=== PATIENT | female | born 1945 | race Caucasian/White ===

== ENCOUNTER 2016-07-27 10:56 | Inpatient (IN) | payer MEDICARE, OTHER ==
--- NOTE | ~2016-07-27 | DS ---
Unit #: [id number] #: [id number] Patient: EULALIO HOFFMAN [id number] [facility]. [place], [place] [address] [id number] I MR#: [id number] NAME: EULALIO HOFFMAN. ROOM: [facility] Age: 71 Sex: F Admission Date: 07/27/2016 : 1945 Discharge Date: 07/31/2016 Attending Physician: Macho Parks M.D. Primary Care Physician: Robbin Russ Jr., A.P.R.N. DISCHARGE SUMMARY DISCHARGE DIAGNOSES 1. Left femur fracture, status post open reduction and internal fixation. 2. Mitral valve prolapse. 3. Anxiety. 4. Hyperlipidemia. 5. Postop acute blood loss anemia. HOSPITAL COURSE The patient is a 71-year-old female, who presented to [facility] after a fall. X-rays revealed comminuted intra-articular distal femur fracture, it was noted to extend down to the intercondylar notch. Orthopedic consult was obtained and she was ultimately taken for an open reduction and internal fixation of said femur fracture. The patient has done well postoperatively. Her pain has been controlled. She has participated with physical therapy without difficulty. Due to insurance issues, the patient is being discharged home with home physical therapy rather than to rehab. The patient did have postoperative acute blood loss anemia; however, it should be noted that this is less likely a complication of surgery and more likely due to the patient's preexisting, but I can only assume is chronic iron-deficiency anemia. She says that she was on iron at home prior to admission. Her hemoglobin was initially 9 and felt 6 postoperatively. The patient did receive 2 units of packed red cells and responded appropriately. At the time of discharge, 2 days after the transfusion, the patient's hemoglobin is noted to be 7.4. She is discharged home to continue her iron. DISCHARGE MEDICATIONS Sarafem 20 mg daily, Risperdal 2 mg p.o. b.i.d., Xanax 0.25 mg p.o. b.i.d., Linzess 290 mcg daily, Pravachol daily, iron sulfate 325 mg p.o. daily, ranitidine p.o. b.i.d., diclofenac p.o. daily, Percocet 10/325 one p.o. q.4 hours p.r.n., and omeprazole 40 mg daily. FOLLOWUP The patient is being discharged home with home health. She should follow up with Dr. Zambrano in 1 week. Dictated by... Macho Parks M.D. Unit #: [id number] #: [id number] Patient: EULALIO HOFFMAN Lorena VALDEZ/modl TD: 07/31/2016 23:10 JOB #: [id number] DISCHARGE SUMMARY Page 1 of 1 X Macho Parks MD X DISCHARGE SUMMARY
--- NOTE | ~2016-07-27 | CR172 ---
[facility] A Service of [facility] RADIOLOGY TEXT RESULTS PATIENT: EULALIO HOFFMAN LOCATION: C4 448-01 : [birth year] UNIT #: [id number] AGE: [address]: Macho Parks MD SEX: F ORDER DR: [id number] [facility] [address] [facility] [place] [facility]. [place], [place] [address] [id number] I MR#: [id number] Acc #: [id number] NAME: EULALIO HOFFMAN. : 1945 SEX: F STUDY DATE/TIME: 07/27/2016 11:04 UNIT: [facility] ROOM: [id number] STUDY DESCRIPTION: CR Knee 3 Views Lt Attending Physician: Joann Lawson M.D. Ordering Physician: Sawyer Santa D.O. Primary Care Physician: Robbin Russ Jr., A.P.R.N. MEDICAL IMAGING REPORT This report is preliminary unless electronic signature is present EXAM Left knee. DATE OF EXAM 07/27/2016 HISTORY Knee pain and swelling for the past 2 days after falling. TECHNIQUE 3 views of the knee were obtained. FINDINGS 3 views knee demonstrate a comminuted intraarticular fracture of the distal femur. There is an oblique wedge-shaped component at the metadiaphyseal junction and a vertical component extending down to the intercondylar notch. There is slight apex anterior angulation. Advanced degenerative changes are seen in all 3 compartments of the knee. There is moderately large joint effusion. IMPRESSION Comminuted intraarticular distal femoral fracture extending down to the intercondylar notch. Advanced osteoarthritis at the knee joint. Dictated by... He Quintanilla M.D. THIS IS AN ELECTRONICALLY VERIFIED REPORT He Quintanilla M.D. at 07/30/2016 9:46 AM STEFAN/jacob TD: 07/27/2016 22:26 [facility] A Service [facility] RADIOLOGY TEXT RESULTS PATIENT: EULALIO HOFFMAN LOCATION: [place] [address]- : [birth year] UNIT #: [id number] AGE: [address]: Macho Parks MD SEX: F ORDER DR: JOB #: [id number] MEDICAL IMAGING REPORT Page 1 of 1 COPY
--- NOTE | ~2016-07-27 | CR106 ---
[facility] A Service of [facility] RADIOLOGY TEXT RESULTS PATIENT: EULALIO HOFFMAN LOCATION: B 448-01 : [birth year] UNIT #: [id number] AGE: [address]: Macho Parks MD SEX: F ORDER DR: [id number] [facility] [address] [facility]. [place], [place] [address] [id number] I MR#: [id number] Acc #: [id number] NAME: EULALIO HOFFMAN. : 1945 SEX: F STUDY DATE/TIME: 07/28/2016 11:29 UNIT: [facility] ROOM: [facility] STUDY DESCRIPTION: CR Femur 2 Views Lt Attending Physician: Macho Parks M.D. Ordering Physician: Ángel Zambrano M.D. Primary Care Physician: Robbin Russ Jr., A.P.R.N. MEDICAL IMAGING REPORT This report is preliminary unless electronic signature is present EXAM Left femur HISTORY ORIF distal femur fracture. FINDINGS 5 limited field of view intraoperative digital radiographs were submitted from a orthopedic fixation procedure. 4.5 minutes of fluoro time utilized. Plate and screw fixation of a distal femur fracture which appears to represent a vertical fracture possibly extending through the intercondylar notch. Near anatomic alignment of the fracture and distal femur. Plate and screw fixation expected position alignment. Mild soft tissue swelling. IMPRESSION Status post ORIF of distal femur fracture. Normal expected intraoperative findings. Dictated by... Shayne Tirado M.D. THIS IS AN ELECTRONICALLY VERIFIED REPORT Shayne Tirado M.D. at 07/29/2016 10:05 AM TESSA/monique TD: 07/29/2016 08:04 JOB #: [id number] MEDICAL IMAGING REPORT Page 1 of 1 COPY
--- NOTE | ~2016-07-27 | HP ---
Unit #: [id number] #: [id number] Patient: EULALIO HOFFMAN [id number] [address] [place], [place] [address] [id number] E MR#: [id number] NAME: EULALIO HOFFMAN. ROOM: Age: 71 Sex: F Admission Date: 07/27/2016 : 1945 Attending Physician: Sawyer Santa D.O. Primary Care Physician: Robbin Russ Jr., A.P.RAdrianaN. HISTORY AND PHYSICAL CHIEF COMPLAINT Fall. HISTORY OF PRESENT ILLNESS The patient is a 71-year-old female with a history of breast cancer, mitral valve prolapse, who presented to the emergency room status post fall. The patient stated the patient was walking on the steps and then she tripped and fell down on the left knee. The patient denies any loss of consciousness and trauma to the head. The patient denies any nausea, vomiting, dizziness, palpitations or diaphoresis. The patient stated the patient has history of mitral valve prolapse and followed with Cardiology at [place]. The patient had an echocardiogram and one and a half months ago and it was normal. The patient had last surgery of the right knee revision with Dr. Schmidt three months ago. The patient denies any fever, chills, urinary urgency or frequency. PAST MEDICAL HISTORY History of breast cancer, mitral valve prolapse. PAST SURGICAL HISTORY Carpal tunnel, right elbow, shoulder surgery, right knee replacement. SOCIAL HISTORY The patient denies history of smoking, alcohol or any illicit drug abuse. FAMILY HISTORY Reviewed and none. ALLERGIES Sulfa. HOME MEDICATIONS 1. Xanax. 2. Pravastatin. 3. Omeprazole. 4. Ranitidine. 5. Fluoxetine. 6. Diclofenac. 7. Lortab. 8. Risperidone. 9. Iron. 10. Linzess. PHYSICAL EXAMINATION Unit #: [id number] #: [id number] Patient: EULALIO HOFFMAN GENERAL APPEARANCE: The patient is lying on the bed not in acute distress. VITAL SIGNS: Temperature 98.5. Pulse 94. Respiratory rate 18. Blood pressure 157/77. Sating 95% at room air. HEENT: Head: Atraumatic, normocephalic. Pupils equal, round, reacting to light and accommodation. Extraocular movements are intact. NECK: Supple. No JVD. LUNGS: Clear to auscultation bilaterally. No rhonchi. No wheezing. HEART: Regular rate and rhythm. ABDOMEN: Soft. Positive bowel sounds. EXTREMITIES: Status post fall with swelling and tenderness at the distal left knee and right knee with healed surgical scars. NEUROLOGIC: Alert, awake, oriented. No gross focal motor deficit. DIAGNOSTIC STUDIES LABORATORY: Glucose 107, BUN 12, creatinine 0.9, sodium 137, potassium 3.7, chloride 101, bicarb 27, calcium 8.9. INR 1.1. WBC 10.6, hemoglobin 9.0, hematocrit 27.6, platelets 349, neutrophils 85.3. IMAGING: X-ray of the knee showed the comminuted distal left femur fracture. EKG is not done. ASSESSMENT 1. Status post fall. 2. Left femur fracture. 3. Remote history of mitral valve prolapse. PLAN To admit the patient to inpatient with telemetry. Check the UA and EKG for preop clearance and the patient has been seen by Dr. Zambrano and awaiting the ORIF in the morning. I will repeat the labs again in the morning and further recommendations will follow as more lab results are available. Pain control with morphine. Dictated by Efrain Alcala TD: 07/27/2016 19:11 JOB #: [id number] HISTORY AND PHYSICAL Page 1 of 1 X X HISTORY AND PHYSICAL
--- NOTE | ~2016-07-27 | OR ---
Unit #: [id number] #: [id number] Patient: EULALIO AL [id number] [address] [place], [place] [address] [id number] I MR#: [id number] NAME: EULALIO AL. ROOM: [facility] Date of Procedure: 07/28/2016 Admission Date: 07/27/2016 Surgeon: Ángel Zambrano M.D. : 1945 Attending Physician: Macho Parks M.D. Primary Care Physician: Robbin Russ Jr., A.P.R.N. OPERATIVE REPORT PREOPERATIVE DIAGNOSES Left distal femur fracture with intraarticular intercondylar split. POSTOPERATIVE DIAGNOSES Left distal femur fracture with intraarticular intercondylar split. PROCEDURE PERFORMED Open reduction and internal fixation of left distal femur fracture. IMPLANTS Jonny 9 hole NCB distal femur plate. GUSSET STITCHER Lashonda Scruggs APRN, RNFA. ANESTHESIA General. ESTIMATED BLOOD LOSS 250 mL. DRAINS Small Hemovac x1. SPECIMENS None. INDICATIONS FOR PROCEDURE Ms. Al is a 71-year-old female, who sustained an injury to her left distal femur during a ground level fall. There is an intraarticular intercondylar split between the medial and lateral metaphyseal segments. Operative intervention was discussed with the patient and family and they elected to proceed. DESCRIPTION OF PROCEDURE The patient was identified in the preoperative holding area. The operative site was marked. Preoperative antibiotics were administered. The patient was brought to the operating room. General anesthetic was induced on her hospital bed. She was then transferred to the operating table. She was placed supine on a radiolucent flat Arnaldo table. The left lower extremity was prepped and draped in sterile fashion. Unit #: [id number] #: [id number] Patient: EULALIO AL The leg was exsanguinated with HemaClear tourniquet. The incision was marked out over the distal femur. The skin was incised sharply with a 10-blade knife and dissection carried down to the IT band. The IT band was opened in line with the skin incision. Dissection was carried down to the distal femur itself. Care was taken to dissect between this layer and the joint capsule. We did create a small punctate perforation opening through the capsule through which a large volume of serous fluid was evacuated. The fracture was then reduced with longitudinal traction over a knee triangle. The plate of the desired size was selected and passed up submuscular pocket along the periosteum of the femur proximally. This was then provisionally pinned in place distally which we had our desired location. This was checked on the lateral radiograph. Once we had the plate positioned in a center-center position, laterally we then placed a percutaneous drill sleeves and then was proximal hole and placed a drill bit across the femur proximally. We then attempted to place one screw at typical buttress location to bring the plate to the bone; however, this was inadvertently 4.0 mm screw was actually smaller than our drill diameter and was therefore we were unable to utilize this hole. We then went more proximally and placed a MotionLoc screw. The plate reduced nicely to the bone. We then made several attempts to reduce the metaphyseal segment to bone utilizing the plate as an indirect reduction aid. There was no purchase in this osteoporotic bone. Ultimately, we selected to hold the femur out to length with K-wires through the plate and placed our proximal screws. We placed a second MotionLoc screw proximally. At the most proximal screw hole, we placed a MotionLoc screw within far cortex broke out and there was no purchase. We therefore changed this to a standard fully-threaded screw and did place a locking cap over this as well giving us 3 solid screws proximally. The guide was then removed again after multiple attempts to indirectly reduced the metaphyseal segment. We had the lateral cortex out to length and then the mechanical axis was well aligned. Locking screws were then therefore placed in the distal segment. Once we had placed a sufficient number of locking screws distally, attention was turned to this 4.0 mm screw which had been used initially. We were able to ultimately retrieved this with a small mosquito hemostat. We then went back in with 5.0 mm MotionLoc screw, which achieved solid purchase. The locking cap was placed over this. This provided us with solid 4 screws fixation proximally. We had restored adequate length through the fracture site and restored the mechanical axis. The tourniquet was deflated. The wounds were irrigated with sterile saline via bulb lavage. The wound was then closed with 0 Vicryl and IT band split distally followed by 2-0 Vicryl and aretha in the skin. A subcutaneous drain was placed distally. The proximal percutaneous stab incisions were closed with 2-0 Vicryl and aretha. Sterile dressings were applied. The patient was placed into a knee immobilizer. DISPOSITION Stable to the recovery room. POSTOPERATIVE PLAN The patient may begin immediate range of motion to the left lower extremity at the knee, but no weightbearing. Dictated by... Ángel Zambrano M.D. Unit #: [id number] #: [id number] Patient: EULALIO AL ELIESER/dong TD: 07/29/2016 02:05 JOB #: [id number] OPERATIVE REPORT Page 1 of 1 X Ángel Zambrano MD X PROCEDURE OPERATIVE NOTE
--- NOTE | ~2016-07-27 | EKG ---
PATIENT: EULALIO HOFFMAN UNIT #: [id number] Ventricular Rate: 78 BPM Atrial Rate: 78 BPM P-R Interval: 132 ms QRS Duration: 92 ms Q-T Interval: 388 ms QTC Calculation(Bezet): 442 ms P Pennock: 65 degrees Calculated R Pennock: -9 degrees Calculated T Pennock: 48 degrees Diagnosis Line: Normal sinus rhythm Diagnosis Line: Normal ECG Diagnosis Line: No previous ECGs available Diagnosis Line: Confirmed by DENA CASTELLON MD ([id number]) on 07/29/2016 Diagnosis Line: 10:56:20 PM INTERPRETING MD: CANDE BARAJAS
--- NOTE | ~2016-07-27 | CO ---
Unit #: [id number] #: [id number] Patient: EULALIO AL [id number] [address] [place], [place] [address] [id number] I MR#: [id number] NAME: EULALIO AL ROOM: 858[address] Age: 71 Sex: F Admission Date: 07/27/2016 : 1945 Attending Physician: Macho Parks M.D. Primary Care Physician: Robbin Russ Jr., A.P.RLisandra. Consultation Date: 07/27/2016 CONSULTATION REPORT CHIEF COMPLAINT Left knee pain. HISTORY OF PRESENT ILLNESS Ms. Al is a 71-year-old female, who sustained an injury to her left knee and distal femur during a fall approximately 2 to 3 days prior to current presentation. She has undergone a previous right total knee arthroplasty and was to undergo a left total knee replacement next month. Unfortunately, she fell at home. She slipped going up steps and landed directly on her left knee. She subsequently had difficulty standing or bearing weight on the affected extremity. She has been near bed bound it sounds since the injury. She has now been brought to the emergency department by family for further evaluation. She has been diagnosed with a distal femur fracture. Orthopedic consultation has been requested. She states that her left knee is swollen and painful. She is comfortable. She is lying supine in bed with the legs in a resting position. She has pain with any attempted movement. Her pain is additionally relieved with Ogema and morphine, which she has received in the emergency department. PAST MEDICAL HISTORY Hyperlipidemia, gastroesophageal reflux disease, depressive disorder, iron deficiency anemia, breast cancer. PAST SURGICAL HISTORY Right carpal tunnel release, right inguinal herniorrhaphy, right shoulder surgery which sounds to be potentially rotator cuff repair, right total knee replacement. MEDICATIONS Xanax, pravastatin, omeprazole, ranitidine, fluoxetine, diclofenac, hydrocodone, risperidone, ferrous sulfate, Linzess. ALLERGIES Sulfa. SOCIAL HISTORY The patient has no tobacco or alcohol use. She resides with her sister and her sister's boyfriend. Her bedroom is on a second floor. She has no illicit drug use. She is not working. FAMILY HISTORY Noncontributory to the current illness. Unit #: [id number] #: [id number] Patient: EULALIO AL REVIEW OF SYSTEMS Ten systems are reviewed and positive for musculoskeletal complaints. Additionally, she reports which she refers to as angina. However, she does not take any nitroglycerin for this. She was recently seen by cnc operator programmer and actually taken off her Imdur. She states that she has no cardiac disease per her cnc operator programmer and does not require any further treatment at this time. PHYSICAL EXAMINATION GENERAL APPEARANCE: Age-appropriate appearing female examined, sitting up in her hospital stretcher. PSYCHIATRIC: Awake, alert, and oriented to person, place, time, and situation with normal range of mood and affect. CARDIAC: Regular rate and rhythm. PULMONARY: No increased work of breathing. HEENT: Poor dentition, otherwise normocephalic, atraumatic cranium. No JVD. No lymphadenopathy. ABDOMEN: Nondistended. NEUROLOGIC: Intact motor and sensory function distally in the foot and all major peripheral nerve distributions. VASCULAR: Her foot is warm and well perfused with a palpable pedal pulse. SKIN: She has soft tissue swelling about the left knee and thigh. There is no ecchymosis. There is no evidence of open injury. No other skin findings. MUSCULOSKELETAL: She has a large knee effusion. Range of motion of the knee is deferred. There is no mechanical axis malalignment or deformity on gross inspection. The area is tender to the touch. DIAGNOSTIC STUDIES IMAGING STUDIES: Plain film radiographs reviewed of the left knee. This demonstrate a T-condylar type fracture of the distal femur with nondisplaced articular fracture line. There is some shortening through the fracture. LABORATORY RESULTS: BMP is reviewed and is unremarkable. INR is 1.1. Hemoglobin is 9.0 and white blood cell count 10.6. IMPRESSION A 71-year-old female with left intraarticular distal femur fracture after ground level fall. PLAN She is to be admitted. We will plan for open reduction and internal fixation of left distal femur tomorrow. We will leave cardiac consultation to the discretion of the admitting service. She denies any recent angina specifically as well as recent shortness of breath and it is reportedly seen her cnc operator programmer in the past month and was to be cleared for her total knee operation, which unfortunately at this point have to be delayed. Risks, benefits, and alternatives of surgery have been discussed with the patient including delayed union, nonunion, loss of range of motion, and stiffness as well as damage to adjacent neurovascular structures. We have also discussed that this will complicate a future knee arthroplasty and alter the time table as noted above. She elected to proceed. Dictated by... Unit #: [id number] #: [id number] Patient: EULALIO AL Efrain BergH/dong TD: 07/27/2016 23:25 JOB #: [id number] CONSULTATION REPORT Page 1 of 1 X Ángel Zambrano MD X CONSULTATION REPORT
--- NOTE | ~2016-07-27 | CR169 ---
[facility] A Service of [facility] RADIOLOGY TEXT RESULTS PATIENT: EULALIO HOFFMAN LOCATION: C4B 448-01 : [birth year] UNIT #: [id number] AGE: [address]: Macho Parks MD SEX: F ORDER DR: [id number] [facility] [address] [facility]. [place], [place] [address] [id number] I MR#: [id number] Acc #: [id number] NAME: EULALIO HOFFMAN. : 1945 SEX: F STUDY DATE/TIME: 07/28/2016 13:36 UNIT: [facility] ROOM: [facility] STUDY DESCRIPTION: CR Knee 2 Views Lt Attending Physician: Macho Parks M.D. Ordering Physician: Ángel Zambrano M.D. Primary Care Physician: Robbin Russ Jr., A.P.R.N. MEDICAL IMAGING REPORT This report is preliminary unless electronic signature is present EXAM Left knee 2 views HISTORY Femur fracture. Postop internal fixation of femur. Pain. Fracture yesterday. FINDINGS AP and lateral views of the left knee demonstrate comminuted oblique fracture distal femoral shaft extending to the metaphysis with lateral side plate and screw fixation of the femur from the proximal shaft to the femoral condyles extending across the comminuted fracture. There is a 8.0-9.0 mm maximal separation of the fracture fragments along the proximal fracture line and there is close to 8 degrees posterior angulation of the dominant fracture apex. Surgical drain overlies the lateral margin of the distal thigh. Moderately severe degenerative changes in the knee. Dictated by... Ross Gay M.D. THIS IS AN ELECTRONICALLY VERIFIED REPORT Ross Gay M.D. at 07/29/2016 3:02 PM Cassandra TD: 07/29/2016 08:05 JOB #: [id number] MEDICAL IMAGING REPORT Page 1 of 1 COPY
[~2016-07-27 10:56] MED LIST: CLARITIN10 MG PO; IBUPROFEN PO; ISMO20 MG PO; LIPITOR PO; PRILOSEC PO; PROZAC PO; VICODIN 5/500 T1 TAB PO
[2016-07-27 14:36] LABS: BASOPHIL% 0.2 % (0-2.5); EOSINOPHIL% 0.3 % (0.0-7.0); HEMATOCRIT 27.6 % (35.0-45.0); LYMPHOCYTE# 0.9 X10e3 (1.0-3.5); LYMPHOCYTE% 8.1 % (17.0-45.0); MEAN CELL VOLUME 81.3 FL (83-96); MEAN CORPUSCULAR HEMOGLOBIN 26.4 PG (28-34); MEAN CORPUSCULAR HGB CONC 32.4 g/dL (30-36); MONOCYTE# 0.7 X10e3 (0-1.0); MONOCYTE% 6.1 % (3.0-12.0); NEUTROPHIL% 85.3 % (40-75); PLATELET COUNT 349 X10e3 (140-420); RED CELL DISTRIBUTION WIDTH 14.5 % (11.0-15.5); WHITE BLOOD COUNT 10.6 X10e3 (4.0-10.5)
[2016-07-27 14:45] LABS: DIFF IND NO
[2016-07-27 14:54] LABS: INR 1.1; PARTIAL THROMBOPLASTIN TIME 25.1 SECONDS (23.5-31.3); PROTHROMBIN TIME (PATIENT) 11.2 SECONDS (9.6-11.5)
[2016-07-27 15:08] LABS: BUN/CREATININE RATIO 13.33; CALCIUM SERUM 8.9 mg/dL (8.4-10.2); CREATININE SERUM 0.9 mg/dL (0.6-1.4); GLOM FILT RATE Estimated 64.8 mL/min (>60); POTASSIUM 3.7 mmol/L (3.5-5.1)
[2016-07-27 19:43] LABS: HEMATOCRIT 27.1 % (35.0-45.0); HEMOGLOBIN 8.8 gm/dL (12.0-16.0); MEAN CELL VOLUME 81.6 FL (83-96); MEAN CORPUSCULAR HEMOGLOBIN 26.6 PG (28-34); MEAN CORPUSCULAR HGB CONC 32.6 g/dL (30-36); MEAN PLATELET VOLUME 7.8 FL (6.5-11.5); RED BLOOD COUNT 3.32 X10e (3.90-5.30); RED CELL DISTRIBUTION WIDTH 14.7 % (11.0-15.5); WHITE BLOOD COUNT 9.1 X10e3 (4.0-10.5)
[2016-07-27 20:19] LABS: BUN/CREATININE RATIO 11.11; CALCIUM SERUM 8.6 mg/dL (8.4-10.2); CREATININE SERUM 0.9 mg/dL (0.6-1.4); GLOM FILT RATE Estimated 64.8 mL/min (>60); POTASSIUM 3.4 mmol/L (3.5-5.1)
[2016-07-28] MEDS ORDERED: ALPRAZOLAM PO (08:46)
[2016-07-28] MEDS ORDERED: PRAVASTATIN SOD20 MG PO (08:46)
[2016-07-28] MEDS ORDERED: RANITIDINE HCL150 M1 PO (08:47)
[2016-07-28] MEDS ORDERED: OMEPRAZOLE20 M1 PO (08:47)
[2016-07-28] MEDS ORDERED: SARAFEM20 MG PO (08:47)
[2016-07-28] MEDS ORDERED: HYDROCODON-ACE1 EA11 PO (08:48)
[2016-07-28] MEDS ORDERED: DICLOFENAC SODI50 MG PO (08:48)
[2016-07-28] MEDS ORDERED: RISPERIDONE ODT2 MG PO (08:49)
[2016-07-28] MEDS ORDERED: LINZESS290 MCG PO (08:49)
[2016-07-28] MEDS ORDERED: IRON325 ( 652 PO (08:49)
[2016-07-28 14:04] LABS: HEMATOCRIT 24.2 % (35.0-45.0); HEMOGLOBIN 7.7 gm/dL (12.0-16.0); MEAN CELL VOLUME 82.3 FL (83-96); MEAN CORPUSCULAR HGB CONC 31.6 g/dL (30-36); MEAN PLATELET VOLUME 7.8 FL (6.5-11.5); RED BLOOD COUNT 2.94 X10e (3.90-5.30); RED CELL DISTRIBUTION WIDTH 14.2 % (11.0-15.5)
[2016-07-29 03:43] LABS: HEMATOCRIT 18.6 % (35.0-45.0)
[2016-07-29 12:44] LABS: HEMATOCRIT 24.8 % (35.0-45.0)
[2016-07-29 12:46] LABS: HEMOGLOBIN 8.2 gm/dL (12.0-16.0)
[2016-07-30 05:24] LABS: BASOPHIL% 0.3 % (0-2.5); EOSINOPHIL# 0.6 X10e3 (0-0.7); EOSINOPHIL% 6.9 % (0.0-7.0); HEMATOCRIT 22.6 % (35.0-45.0); HEMOGLOBIN 7.5 gm/dL (12.0-16.0); LYMPHOCYTE% 12.9 % (17.0-45.0); MEAN CELL VOLUME 82.3 FL (83-96); MEAN CORPUSCULAR HEMOGLOBIN 27.3 PG (28-34); MEAN CORPUSCULAR HGB CONC 33.2 g/dL (30-36); MEAN PLATELET VOLUME 7.8 FL (6.5-11.5); MONOCYTE# 0.6 X10e3 (0-1.0); MONOCYTE% 7.8 % (3.0-12.0); NEUTROPHIL# 5.7 X10e3 (1.5-7.1); NEUTROPHIL% 72.1 % (40-75); PLATELET COUNT 221 X10e3 (140-420); RED BLOOD COUNT 2.75 X10e (3.90-5.30); RED CELL DISTRIBUTION WIDTH 14.5 % (11.0-15.5)
[2016-07-30 05:25] LABS: DIFF IND YES
[2016-07-30 05:51] LABS: MICROCYTOSIS SL; PLATELET ESTIMATE NORMAL (NORMAL)
[2016-07-31 03:26] LABS: BASOPHIL% 0.3 % (0-2.5); EOSINOPHIL# 0.5 X10e3 (0-0.7); EOSINOPHIL% 5.9 % (0.0-7.0); HEMATOCRIT 22.5 % (35.0-45.0); HEMOGLOBIN 7.4 gm/dL (12.0-16.0); LYMPHOCYTE% 10.7 % (17.0-45.0); MEAN CELL VOLUME 83.6 FL (83-96); MEAN CORPUSCULAR HEMOGLOBIN 27.5 PG (28-34); MEAN CORPUSCULAR HGB CONC 32.9 g/dL (30-36); MEAN PLATELET VOLUME 7.8 FL (6.5-11.5); MONOCYTE# 0.6 X10e3 (0-1.0); MONOCYTE% 6.7 % (3.0-12.0); NEUTROPHIL# 6.9 X10e3 (1.5-7.1); NEUTROPHIL% 76.4 % (40-75); PLATELET COUNT 229 X10e3 (140-420); RED BLOOD COUNT 2.69 X10e (3.90-5.30); RED CELL DISTRIBUTION WIDTH 14.6 % (11.0-15.5)
[2016-07-31 03:28] LABS: DIFF IND NO
[2016-07-31] MEDS ORDERED: OMEPRAZOLE40 M1 PO (10:13)
[2016-07-31] MEDS ORDERED: PERCOCET 10/3251 TAB PO (10:13)
[2016-07-31] MEDS ORDERED: XARELTO10 MG PO (11:00)
[2016-12-20] MEDS ORDERED: ALPRAZOLAM PO (09:15)
[2016-12-20] MEDS ORDERED: OMEPRAZOLE20 M1 PO (09:15)
[2016-12-20] MEDS ORDERED: ACID CONTROL150 M1 PO (09:15)
[2016-12-20] MEDS ORDERED: PRAVACHOL PO (09:15)
[2016-12-20] MEDS ORDERED: FLUOXETINE HCL20 M1 PO (09:16)
[2016-12-20] MEDS ORDERED: VOLTAREN50 MG PO (09:16)
[2016-12-20] MEDS ORDERED: HYDROCODON-ACE1 EAC5 PO (09:17)
[2016-12-20] MEDS ORDERED: RISPERIDONE2 MG PO (09:17)
[2016-12-20] MEDS ORDERED: LINZESS290 MCG PO (09:18)
[2016-12-20] MEDS ORDERED: FERRO-TIME325 MG PO (09:18)
== END 2016-07-31 13:57 | disposition home health service (06) | DRG 481 ==
LOC: CED 10:56 → CEDOF 18:20 → C4B 07-28 14:28
PROVIDERS: Emergency Medicine; Internal Medicine; Nurse Practitioner; Orthopaedic Surgery
PROC: 0QSC04Z Reposition Left Lower Femur with Internal Fixation Device, Open Approach (ICD-10-PCS; principal; 2016-07-28 09:00)
PROC: 30233N1 Transfusion of Nonautologous Red Blood Cells into Peripheral Vein, Percutaneous Approach (ICD-10-PCS; 2016-07-29)
DX: S72.492A Other fracture of lower end of left femur, initial encounter for closed fracture (principal); D62 Acute posthemorrhagic anemia; I34.1 Nonrheumatic mitral (valve) prolapse; F32.9 Major depressive disorder, single episode, unspecified; W10.9XXA Fall (on) (from) unspecified stairs and steps, initial encounter; Z85.3 Personal history of malignant neoplasm of breast; Z96.651 Presence of right artificial knee joint; Z88.2 Allergy status to sulfonamides; E78.5 Hyperlipidemia, unspecified; K21.9 Gastro-esophageal reflux disease without esophagitis; F41.9 Anxiety disorder, unspecified
CPT/HCPCS: 36415; 73552; 73560; 73562; 76001; 80048; 85014; 85018; 85025; 85027; 85610; 85730; 86850; 86900; 86901; 86923; 93005; 96361; 96374; 96375; 97110; 97116; 97162; 97530; 99285; C1713; G8978-GP; G8979-GP; J0360; J0690; J1170; J2250; J2270; J2405; J3010; J3370; P9016

== ENCOUNTER 2016-11-02 11:27 | Emergency (ER) | payer MEDICARE, OTHER ==
--- NOTE | ~2016-11-02 | CR126 ---
[facility] A Service of [facility] RADIOLOGY TEXT RESULTS PATIENT: EULALIO HOFFMAN LOCATION: [facility] : [birth year] UNIT #: [id number] AGE: [address]: Popeye Beverly MD SEX: F ORDER DR: [id number] [facility] [address] [facility]. [place], [place] [address] [id number] E MR#: [id number] Acc #: [id number] NAME: EULALIO HOFFMAN : 1945 SEX: F STUDY DATE/TIME: 11/02/2016 13:07 UNIT: [facility] ROOM: STUDY DESCRIPTION: CR Foot Complete Min 3 View Lt Attending Physician: Popeye Beverly M.D. Ordering Physician: Popeye Beverly M.D. Primary Care Physician: Robbin Russ Jr., A.P.R.N. MEDICAL IMAGING REPORT This report is preliminary unless electronic signature is present EXAM Left foot, 3 views. HISTORY Foot pain for 1 week. Swelling. No injury. FINDINGS Three views of the left foot demonstrate normal bone alignment. Moderate degenerative changes in the midfoot. Posterior and plantar calcaneal spurs. Mild degenerative changes at the first MTP joint. IMPRESSION No acute finding. No fracture. Multifocal degenerative changes, primarily in the midfoot. Dictated by... Ross aGy M.D. THIS IS AN ELECTRONICALLY VERIFIED REPORT Ross Gay M.D. at 11/03/2016 10:33 PM AMEEL/jacob TD: 11/02/2016 23:01 JOB #: [id number] MEDICAL IMAGING REPORT Page 1 of 1 COPY
--- NOTE | ~2016-11-02 | CR17 ---
[facility] A Service of [facility] & [facility] / [facility] RADIOLOGY TEXT RESULTS PATIENT: EULALIO HOFFMAN LOCATION: [facility] : [birth year] UNIT #: [id number] AGE: [address]: Popeye Beverly MD SEX: F ORDER DR: [id number] [facility] [address]. [place], [place] [address] [id number] E MR#: [id number] Acc #: [id number] NAME: EULALIO HOFFMAN : 1945 SEX: F STUDY DATE/TIME: 11/02/2016 13:06 UNIT: [facility] ROOM: STUDY DESCRIPTION: CR Ankle 2 Views Lt Attending Physician: Popeye Beverly M.D. Ordering Physician: Popeye Beverly M.D. Primary Care Physician: Robbin Russ Jr., A.P.R.N. MEDICAL IMAGING REPORT This report is preliminary unless electronic signature is present EXAM Left ankle, 3 views. HISTORY Ankle pain and swelling for 1 week. No injury. FINDINGS Three views of the left ankle demonstrate normal bone alignment. No fracture or dislocation. Mild generalized demineralization. Posterior and plantar calcaneal spurs. Moderate degenerative changes in the midfoot. IMPRESSION No acute findings. Dictated by... Ross Gay M.D. THIS IS AN ELECTRONICALLY VERIFIED REPORT Ross Gay M.D. at 11/03/2016 10:33 PM DFL/diana TD: 11/02/2016 22:55 JOB #: [id number] MEDICAL IMAGING REPORT Page 1 of 1 COPY
[~2016-11-02 11:27] MED LIST changes: +ALPRAZOLAM PO; +DICLOFENAC SODI50 MG PO; +HYDROCODON-ACE1 EA11 PO; +IRON325 ( 652 PO; +LINZESS290 MCG PO; +OMEPRAZOLE20 M1 PO; +OMEPRAZOLE40 M1 PO; +PERCOCET 10/3251 TAB PO; +PRAVASTATIN SOD20 MG PO; +RANITIDINE HCL150 M1 PO; +RISPERIDONE ODT2 MG PO; +SARAFEM20 MG PO; +XARELTO10 MG PO
[2016-12-20] MEDS ORDERED: PRAVACHOL PO (09:15)
[2016-12-20] MEDS ORDERED: ACID CONTROL150 M1 PO (09:15)
[2016-12-20] MEDS ORDERED: OMEPRAZOLE20 M1 PO (09:15)
[2016-12-20] MEDS ORDERED: ALPRAZOLAM PO (09:15)
[2016-12-20] MEDS ORDERED: FLUOXETINE HCL20 M1 PO (09:16)
[2016-12-20] MEDS ORDERED: VOLTAREN50 MG PO (09:16)
[2016-12-20] MEDS ORDERED: HYDROCODON-ACE1 EAC5 PO (09:17)
[2016-12-20] MEDS ORDERED: RISPERIDONE2 MG PO (09:17)
[2016-12-20] MEDS ORDERED: FERRO-TIME325 MG PO (09:18)
[2016-12-20] MEDS ORDERED: LINZESS290 MCG PO (09:18)
== END 2016-11-02 14:25 | disposition home or self-care (01) ==
LOC: CED 11:27
DX: S96.212A Strain of intrinsic muscle and tendon at ankle and foot level, left foot, initial encounter (principal); Z88.2 Allergy status to sulfonamides; X58.XXXA Exposure to other specified factors, initial encounter; Y92.9 Unspecified place or not applicable
CPT/HCPCS: 29540; 73600; 73630; 99283

== ENCOUNTER → 2016-12-09 | Outpatient (CLI) | payer MEDICARE, OTHER ==
[~2016-12-09] MED LIST changes: +ACID CONTROL150 M1 PO; +FERRO-TIME325 MG PO; +FLUOXETINE HCL20 M1 PO; +HYDROCODON-ACE1 EAC5 PO; +PERCOCET10 PO; +PRAVACHOL PO; +RISPERIDONE2 MG PO; +VOLTAREN50 MG PO
--- NOTE | ~2016-12-09 | CT2 ---
[facility] A Service [facility] RADIOLOGY TEXT RESULTS PATIENT: EULALIO HOFFMAN LOCATION: [facility] : [birth year] UNIT #: [id number] AGE: [address]: Mauri Amaral MD SEX: F ORDER DR: [id number] [facility] [address]. [place], [place] [address] [id number] O MR#: [id number] Acc #: [id number] NAME: EULALIO HOFFMAN : 1945 SEX: F STUDY DATE/TIME: 12/09/2016 12:08 UNIT: [facility] ROOM: STUDY DESCRIPTION: CT Abd and Pelv W Cont Attending Physician: Mauri Amaral M.D. Referring Physician: Mauri Amaral M.D. Ordering Physician: Mauri Amaral M.D. Primary Care Physician: Robbin Russ Jr., A.P.R.N. MEDICAL IMAGING REPORT This report is preliminary unless electronic signature is present EXAM CT scan of the abdomen and pelvis with contrast INDICATIONS Nausea for 6 months with 20-pound weight loss in 4 months. COMPARISON 12/20/2006 TECHNIQUE The patient was given 100 mL of Isovue-370 and axial 5-mm images were obtained through the abdomen and pelvis. Oral contrast was also administered. Sagittal and coronal reconstructions were generated. This CT exam was performed with one or more of the following radiation dose reduction techniques: Automatic exposure control, adjustment of mA and/or kV according to patient size, and iterative reconstruction. FINDINGS Lung bases are clear. The liver, gallbladder, spleen, pancreas, adrenal glands and kidneys are normal in appearance. The aorta is normal in size and there is no adenopathy. The bowel appears normal. The uterus, adnexal regions and bladder are normal. The bones show degenerative change and scoliosis in the lumbar spine. IMPRESSION 1. There is no evidence of mass or adenopathy. 2. Lumbar spine scoliosis. 3. Otherwise, normal. Dictated by... [facility] A Service [facility] RADIOLOGY TEXT RESULTS PATIENT: EULALIO HOFFMAN LOCATION: [facility] : 47 UNIT #: [id number] AGE: [address]: Mauri Amaral MD SEX: F ORDER DR: Bear Ashley M.D. THIS IS AN ELECTRONICALLY VERIFIED REPORT Bear Ashley M.D. at 12/10/2016 6:04 AM SHAI/yuval TD: 12/10/2016 04:23 JOB #: [id number] MEDICAL IMAGING REPORT Page 1 of 1 COPY
[2016-12-09 09:19] LABS: HEMATOCRIT 30.2 % (35.0-45.0); HEMOGLOBIN 9.9 gm/dL (12.0-16.0); MEAN CELL VOLUME 80.8 FL (83-96); MEAN CORPUSCULAR HEMOGLOBIN 26.5 PG (28-34); MEAN CORPUSCULAR HGB CONC 32.8 g/dL (30-36); MEAN PLATELET VOLUME 7.2 FL (6.5-11.5); RED BLOOD COUNT 3.73 X10e (3.90-5.30); RED CELL DISTRIBUTION WIDTH 15.8 % (11.0-15.5); WHITE BLOOD COUNT 7.9 X10e3 (4.0-10.5)
[2016-12-09 10:29] LABS: ALBUMIN SERUM 3.3 g/dL (3.5-5.0); BILIRUBIN,TOTAL 0.5 mg/dL (0.2-2.0); BUN/CREATININE RATIO 14.54; CALCIUM SERUM 8.9 mg/dL (8.4-10.2); CREATININE SERUM 1.1 mg/dL (0.6-1.4); GLOM FILT RATE Estimated 50.8 mL/min (>60); POTASSIUM 4.4 mmol/L (3.5-5.1); PROTEIN TOTAL SERUM 6.6 g/dL (6.0-8.3)
[2016-12-09 10:33] LABS: FERRITIN 43 ng/mL (11-307)
[2016-12-09 10:37] LABS: FOLATE (FOLIC ACID) >23.3 ng/mL (>5.8)
== END | disposition home or self-care (01) ==
LOC: CCAT 08:45
PROVIDERS: Internal Medicine
DX: R10.9 Unspecified abdominal pain (principal); R63.4 Abnormal weight loss; M41.9 Scoliosis, unspecified
CPT/HCPCS: 36415; 74177; 80053; 82607; 82728; 82746; 83540; 84466; 85027; 96360; 96361; Q9967

== ENCOUNTER → 2016-12-20 | Day surgery (SDC) | payer MEDICARE, OTHER ==
--- NOTE | ~2016-12-20 | OR ---
Unit #: [id number] #: [id number] Patient: EULALIO HOFFMAN [id number] [address] [place], [place] [address] [id number] O MR#: [id number] NAME: EULALIO HOFFMAN ROOM: Date of Procedure: 12/20/2016 Admission Date: 12/20/2016 Surgeon: Mauri Amaral M.D. : 1945 Attending Physician: Mauri Amaral M.D. Primary Care Physician: Robbin Russ Jr., A.P.R.N. OPERATIVE REPORT PROCEDURES PERFORMED Esophagogastroduodenoscopy with biopsy and esophagogastroduodenoscopy with argon plasma coagulation. INDICATIONS A 71-year-old female. MEDICATIONS Monitored anesthesia. POSTOPERATIVE FINDINGS 1. There were 2 AVMs down the pyloric canal. They were cauterized using APC. There were some active oozing seen. 2. Chronic appearing gastritis, biopsies taken. 3. Significant duodenitis involving bulb and descending duodenum. Biopsies taken. 4. Small hiatal hernia. PLAN Continue with PPI therapy. Follow up on pathology report. Also schedule a colonoscopy for further evaluation of iron deficiency anemia. DESCRIPTION OF PROCEDURE The patient was explained of the procedure, risks, and benefits along with risks and benefits of anesthesia. She was brought to the endoscopy room. Propofol anesthesia was given. Bite block was placed. The scope was passed down the mouth into esophagus, stomach, duodenum, and distal duodenum. Findings as described. Cautery with APC carried out in the pyloric canal. Gastric biopsies were taken along with duodenal biopsies. I retroflexed in the stomach, which was unremarkable. Gently, the scope was pulled out. She tolerated it well. No major complications were seen. Dictated by... Efrain oSl/dong TD: 12/20/2016 15:32 JOB #: [id number] Unit #: [id number] #: [id number] Patient: EULALIO HOFFMAN OPERATIVE REPORT Page 1 of 1 X Mauri Amaral MD PROCEDURE OPERATIVE NOTE
== END | disposition home or self-care (01) ==
LOC: COPS 08:12
DX: K29.50 Unspecified chronic gastritis without bleeding (principal); K52.9 Noninfective gastroenteritis and colitis, unspecified; K31.819 Angiodysplasia of stomach and duodenum without bleeding; K29.80 Duodenitis without bleeding; K44.9 Diaphragmatic hernia without obstruction or gangrene; K21.9 Gastro-esophageal reflux disease without esophagitis; F17.210 Nicotine dependence, cigarettes, uncomplicated; Z88.2 Allergy status to sulfonamides; Z79.899 Other long term (current) drug therapy
CPT/HCPCS: 88305; 88312

== ENCOUNTER → 2017-01-16 | Outpatient (CLI) | payer MEDICARE, OTHER ==
--- NOTE | ~2017-01-16 | EKG ---
PATIENT: EULALIO HOFFMAN UNIT #: [id number] Ventricular Rate: 66 BPM Atrial Rate: 66 BPM P-R Interval: 132 ms QRS Duration: 90 ms Q-T Interval: 412 ms QTC Calculation(Bezet): 431 ms P [place]: 63 degrees Calculated R [place]: 2 degrees Calculated T [place]: 48 degrees Diagnosis Line: Normal sinus rhythm Diagnosis Line: Normal ECG Diagnosis Line: When compared with ECG of 27-JUL-2016 19:23, Diagnosis Line: No significant change was found Diagnosis Line: Confirmed by NICKI RILEY MD ([id number]) on Diagnosis Line: 01/17/2017 11:35:02 AM INTERPRETING MD: OSVALDO BARAJAS
[2017-01-16 11:43] LABS: HEMATOCRIT 31.6 % (35.0-45.0); HEMOGLOBIN 10.1 gm/dL (12.0-16.0); MEAN CELL VOLUME 83.6 FL (83-96); MEAN CORPUSCULAR HEMOGLOBIN 26.7 PG (28-34); MEAN CORPUSCULAR HGB CONC 31.9 g/dL (30-36); MEAN PLATELET VOLUME 7.4 FL (6.5-11.5); RED BLOOD COUNT 3.78 X10e (3.90-5.30); RED CELL DISTRIBUTION WIDTH 17.2 % (11.0-15.5); WHITE BLOOD COUNT 6.9 X10e3 (4.0-10.5)
[2017-01-16 12:07] LABS: URINE APPEARANCE CLEAR; URINE BILIRUBIN NEG (NEG); URINE BLOOD NEG (NEG); URINE COLOR YELLOW; URINE GLUCOSE NEG (NEG); URINE KETONE NEG (NEG); URINE LEUKOCYTE ESTERASE NEG (NEG); URINE NITRATE NEG (NEG); URINE PROTEIN NEG (NEG); URINE SPECIFIC GRAVITY 1.007 (1.003-1.035); URINE UROBILINOGEN 0.2 MG/DL (NEG)
[2017-01-16 12:11] LABS: CULTURE INDICATED? NO; URINE SOURCE CLEAN CATCH
[2017-01-16 12:18] LABS: ALBUMIN SERUM 3.5 g/dL (3.5-5.0); BILIRUBIN,TOTAL 0.4 mg/dL (0.2-2.0); BUN/CREATININE RATIO 13.75; CALCIUM SERUM 8.9 mg/dL (8.4-10.2); CREATININE SERUM 0.8 mg/dL (0.6-1.4); GLOM FILT RATE Estimated 74.8 mL/min (>60); PROTEIN TOTAL SERUM 6.3 g/dL (6.0-8.3)
== END | disposition home or self-care (01) ==
LOC: CAMB 10:08
PROVIDERS: Orthopaedic Surgery
DX: Z01.818 Encounter for other preprocedural examination (principal); M19.011 Primary osteoarthritis, right shoulder
CPT/HCPCS: 36415; 80053; 81003; 85027; 87070; 93005